=== PATIENT | female | born 1980 | race Caucasian/White ===

== ENCOUNTER 2018-12-19 10:26 | Emergency (ER) | payer SELFPAY ==
[2018-12-19 10:27] VITALS: BP 127/86; PULSE 104; RESP 17; TEMP 36.9; O2SAT 99; BMI 27.4
--- NOTE | 2018-12-19 10:31 | NURSING ---
NO OLD EKGS
--- NOTE | 2018-12-19 11:10 | EKG12_ITS ---
Test Reason : CP Blood Pressure : / mmHG Vent. Rate : 080 BPM Atrial Rate : 080 BPM P-R Int : 112 ms QRS Dur : 084 ms QT Int : 372 ms P-R-T Axes : 034 068 035 degrees QTc Int : 429 ms Normal sinus rhythm with sinus arrhythmia Normal ECG Confirmed by BOZENA MON, PEDRO ([id number]), pictures editor ARACELI MILAN ([id number]) on 12/21/2018 1:40:29 PM Referred By: NATALEE Confirmed By:HUNTER SEALS MD
--- NOTE | 2018-12-19 11:10 | RAD_ITS ---
STUDY: X-RAY CHEST REASON FOR EXAM: Female, 38 years old. Dizziness, chest tightness and shortness of breath. TECHNIQUE: Single AP portable view of the chest. COMPARISON: None. FINDINGS: EKG electrodes are seen. The lungs are clear and expanded. There is no demonstrated pleural abnormality. Normal size heart. Normal mediastinum and belkis. Normal visualized pulmonary arteries. Normal visualized aortic arch and descending thoracic aorta. Normal visualized thoracic spine. Normal visualized ribs, clavicles, and shoulders. There is no demonstrated abnormality of the visualized soft tissue structures of the upper abdomen. RAD/Chest 1 View (Portable) IMPRESSION: Normal x-ray examination of the chest. Electronically Signed: Landen Pierce, at 12:25 EDT , Service support ,
--- NOTE | 2018-12-19 11:11 | ED.VIS.GEN ---
History of Present Illness Chief Complaint: Chest Pain Informant: Patient Onset: Today Current Severity: Mild Maximum Severity: Moderate Narrative: Patient has had multiple increased stressors over the last several months. She states she got to work today and was feeling lightheaded. While she was doing her job she seemed distracted and felt well. She states during a break she started to feel very lightheaded and as if she might pass out. She went to the restroom and was found by coworkers hyperventilating in the corner. She states she had pain in her back and her chest. She states she started get numbness and tingling in both hands and feet. She did get spasm and cramp in her right hand. Patient states she is supposed to be on muscle relaxers and a medication for neuropathy but cannot afford them. Past Medical History - Allergies and Home Meds Allergies/Adverse Reactions: Allergies No Known Allergies Allergy (Verified 12/19/18 10:27) Primary Care Physician: Raudel Helton MD [NON-STAFF] - Prior records reviewed: Yes Past Medical History: - - Reviewed Lives: Alone Smoking Status: Current every day smoker Review of Systems General: Denies: Chills, Fever Eyes: Denies: Visual changes - bilaterally ENT: Denies: Bilateral ear pain Cardiovascular: Reports: Chest pain, Heart racing Respiratory: Reports: Dyspnea. Denies: Cough Gastrointestinal: Denies: Abdominal pain, Nausea, Vomiting, Diarrhea Musculoskeletal: Reports: Back pain Skin: Denies: Wounds Neurological: Reports: Parasthesia. Denies: Headache Psych: Reports: Anxiety Hematologic: Denies: Easy bruising Allergy: Denies: Uticaria Physical Exam Vital Signs/Narrative: Vital Signs Temp Pulse Resp BP Pulse Ox 12/19/18 10:27 98.4 F 104 H 17 127/86 H 99 Inital Vital Signs reviewed: Yes General: Well nourished, Well developed Head: Normocephalic ENT: Moist mucous membranes Neck: Supple Cardiovascular: Regular rate, Regular rhythm Respiratory: No distress, CTA bilaterally Abdomen: Soft, Nontender Back: Normal Inspection Extremities: Nontender Skin: Normal color Neurological: Alert, Oriented x3 Psychological: Tearful, - - Anxious Diagnostic/Tx/Re-eval 12/19/18 11:10 Chest 1 View (Portable) [RAD] Stat Per ED physician reading chest x-ray is unremarkable. Formal report is pending. Laboratory Results 12/19/18 12/19/18 12/19/18 10:45 10:45 10:45 WBC 8.3 RBC 4.91 Hgb 13.1 Hct 40.9 MCV 83.3 MCH 26.7 L MCHC 32.0 RDW Std Deviation 46.3 H RDW Coeff of Abby 15.2 H Plt Count 292 MPV 10.6 Immature Gran % (Auto) 0.200 Neut % (Auto) 69.3 Lymph % (Auto) 23.4 Archer % (Auto) 5.2 Eos % (Auto) 1.3 Baso % (Auto) 0.6 Absolute Neuts (auto) 5.8 Absolute Lymphs (auto) 1.95 Nucleated RBC % 0 D-Dimer Quant (PE/DVT) 0.29 Sodium 142 Potassium 3.8 Chloride 111 H Carbon Dioxide 20.0 L Anion Gap 11 BUN 11 Creatinine 0.96 Estim Creat Clear Calc 69.29 Est GFR (MDRD) Af Amer 85 Est GFR (MDRD) Non-Af 70 BUN/Creatinine Ratio 11.5 Glucose 86 Calcium 9.4 Troponin I < 0.015 TSH 2.76 Serum , Qual 12/19/18 10:45 WBC RBC Hgb Hct MCV MCH MCHC RDW Std Deviation RDW Coeff of Abby Plt Count MPV Immature Gran % (Auto) Neut % (Auto) Lymph % (Auto) Archer % (Auto) Eos % (Auto) Baso % (Auto) Absolute Neuts (auto) Absolute Lymphs (auto) Nucleated RBC % D-Dimer Quant (PE/DVT) Sodium Potassium Chloride Carbon Dioxide Anion Gap BUN Creatinine Estim Creat Clear Calc Est GFR (MDRD) Af Amer Est GFR (MDRD) Non-Af BUN/Creatinine Ratio Glucose Calcium Troponin I TSH Serum , Qual NEGATIVE - EKG Initial EKG Interpretation: Sinus Rhythm - Sinus 80 with no acute ischemia. - Medical Decision Making Patient is anxious and intermittently tearful on initial evaluation. I initially was going to write her for Valium, the patient states in the past this is made her more anxious. She was given a dose of Vistaril followed by a dose of Flexeril for her back pain. On repeat evaluation she still complains of back pain. I will write her a new prescription for her Flexeril and will give her a good Rx prescription card to help with cost. I asked her if she felt like she needed counseling or any other support system to help her through these more stressful times. She declines this. She states she will reach out if she feels this will be beneficial. ED Disposition - Plan for ED Patient: Disposition: Home or Assisted Living Diagnosis: Anxiety Instructions: Panic Attack, BACK SPASM, No Trauma Prescriptions: cycloBENZAPRine HCl [Flexeril] 10 mg PO TID PRN #20 tablet PRN Reason: Muscle Spasm Referrals: Raudel Helton MD [NON-STAFF] - 1 Week if not improving
[2018-12-19 11:19] LABS: Absolute Lymphocyte Count 1.95 X10^3/uL (0.83-4.51); Absolute Neutrophil Count 5.8 X10^3/uL (2.0-7.7); Basophil# 0.05 X10^3/uL; Basophil% 0.6 % (0-1); Eosinophil# 0.11 X10^3/uL; Eosinophils% 1.3 % (0-5); Hematocrit 40.9 % (37-47); Hemoglobin 13.1 g/dL (12.0-15.0); Lymphocyte # 1.95 X10^3/ul (4.0); Lymphocyte % 23.4 % (19-41); Mean Corpuscular Hgb 26.7 pg (27.0-32.0); Mean Corpuscular Volume 83.3 fL (81-99); Mean Platelet Vol. 10.6 fl (6.2-12.0); Monocyte# 0.43 X10^3/uL; Monocyte% 5.2 % (0-10); NRBC Flagged by Analyzer 0 % (0-5); Neutrophil # 5.76 X10^3/uL (2.7-7.7); Neutrophil % 69.3 % (47-70); Platelet Count 292 K/mm3 (150-450); RBC Distribution Width CV 15.2 % (11.6-14.6); RBC Distribution Width SD 46.3 fl (35.1-43.9); Red Blood Count 4.91 M/mm3 (4.2-5.4); White Blood Count 8.3 K/mm3 (4.4-11.0)
[2018-12-19] MEDS: 0.9% Normal Saline 1,000 ML 150 ML IV (11:22)
[2018-12-19] MEDS: hydrOXYzine PAM 25 MG Capsule PO (11:22)
[2018-12-19 11:24] LABS: Internal QC Validated? YES +Cl - CLEAR BKGD; Pregnancy, Serum, hCG Quali. NEGATIVE Negative
[2018-12-19 11:28] VITALS: PULSE 75; RESP 18
[2018-12-19] MEDS: cycloBENZAPRine HCl 10 MG Tablet PO (11:31)
[2018-12-19 11:38] LABS: Anion Gap 11 (5-15); BUN 11 mg/dL (7-18); BUN/Creat Ratio 11.5 RATIO (10-20); Calcium,Total 9.4 mg/dL (8.5-10.1); Chloride 111 mmol/L (98-107); Creatinine, Serum 0.96 mg/dL (0.55-1.02); EST Glomerular Filtration Rate 70 mL/min (>60); Est Glom Filt Rate - Afr Amer 85 mL/min (>60); Estimated Creatinine Clearance 69.29 ml/min; Glucose 86 mg/dL (74-106); Potassium 3.8 mmol/L (3.5-5.1); Sodium Level 142 mmol/L (136-145); Thyroid Stim Hormone (TSH) 2.76 uIU/mL (0.358-3.74)
[2018-12-19 11:40] LABS: D-Dimer Quantitative (DVT/PE) 0.29 FEU/ug/m (0.27-0.49)
[2018-12-19 12:36] VITALS: BP 119/76; PULSE 77; RESP 18
== END 2018-12-19 12:37 | disposition home or self-care (01) ==
PROVIDERS: Emergency Provider Emergency Medicine
DX: F41.9 Anxiety disorder, unspecified (principal); R42 Dizziness and giddiness; M54.9 Dorsalgia, unspecified; M62.838 Other muscle spasm; F17.200 Nicotine dependence, unspecified, uncomplicated; Z79.899 Other long term (current) drug therapy
CPT/HCPCS: 71045; 80048; 84443; 84484; 84703; 85025; 85379; 93005; 96360; 99285; J7030; A4216